=== PATIENT | male | born 1940 | race Caucasian/White ===

== ENCOUNTER 2019-02-24 17:14 | Inpatient (IN) | payer MEDICARE ==
[~2019-02-24] VITALS: Ht 172.7 cm; Wt 80.5 kg
--- NOTE | 2019-02-24 17:37 | NUR ---
Pt asssessed. Reports acute onset of diffuse abd cramping after working out at the gym this afternoon. Pt reports associated N/V. Pt denies fevers. Pt reports dirrhea for past week from taking an anti fingal medication which he has stopped. Denies CP or SOB. Did not eat anything new or different. NAD at this time. Pain worst with palpation. Will cont to monitor
[2019-02-24] MEDS ORDERED: CARV3.12 PO (17:49)
[2019-02-24] MEDS ORDERED: ATOR10TA9 PO (17:50)
[2019-02-24] MEDS ORDERED: SODIUM CHLORIDE FLUSH 10ML SYR IVF ONE (18:00)
[2019-02-24] MEDS ORDERED: LEVO125T PO (18:22)
[2019-02-24 18:27] LABS: BASOPHILS # (AUTO) 0.05 x10^3/uL (0-0.1); BASOPHILS % (AUTO) 0 % (0-1); EOSINOPHILS # (AUTO) 0.09 x10^3/uL (0-0.4); EOSINOPHILS % (AUTO) 1 % (1-7); LYMPHOCYTES # (AUTO) 1.49 x10^3/uL (1-3.4); LYMPHOCYTES % (AUTO) 12 % (22-44); MD NO; MEAN CORPUSCULAR HEMOGLOBIN 30.7 pg (27.5-34.5); MEAN CORPUSCULAR HGB CONC 32.9 g/dL (33.2-36.2); MEAN CORPUSCULAR VOLUME 93.3 fL (81-97); MEAN PLATELET VOLUME 8.4 fL (7.4-10.4); MONOCYTES # (AUTO) 0.68 x10^3/uL (0.2-0.8); MONOCYTES % (AUTO) 6 % (2-9); NEUTROPHILS # (AUTO) 10.15 x10^3/uL (1.8-6.8); NEUTROPHILS % (AUTO) 82 % (42-75); PLATELET COUNT 235 x10^3/uL (130-400); RED BLOOD COUNT 4.82 x10^6/uL (4.38-5.82); RED CELL DISTRIBUTION WIDTH 13.7 % (9.4-14.8)
[2019-02-24 18:39] LABS: ALANINE AMINOTRANSFERASE 29 U/L (12-78); ANION GAP 9 mmol/L (5-15); CALCIUM 8.8 mg/dL (8.5-10.1); CHLORIDE 109 mmol/L (98-107); CREATININE 1.09 mg/dL (0.7-1.3)
[2019-02-24 18:41] LABS: ALKALINE PHOSPHATASE 77 U/L (45-117); BILIRUBIN,TOTAL 1.1 mg/dL (0.2-1.0)
--- NOTE | 2019-02-24 18:57 | NUR ---
Report to Sandra VORA, turning over care at this time. Aware pt is requesting pain medication
--- NOTE | 2019-02-24 19:06 | NUR ---
pt to ct
[2019-02-24] MEDS ORDERED: ONDANSETRON 2MG/ML, 2ML ONE (19:10)
[2019-02-24] MEDS ORDERED: MORPHINE SULFATE 4 MG/ML, 1ML ONE (19:11)
[2019-02-24] MEDS ORDERED: MORPHINE SULFATE 4 MG/ML, 1ML IVPush PRN ×2 (19:30→20:00)
[2019-02-24] MEDS ORDERED: ONDANSETRON 2MG/ML, 2ML IVPush ONE (19:30)
--- NOTE | 2019-02-24 19:30 | NUR ---
PT RESTING CALMLY, MEDICATED PER MAR, MONITORS IN PLACE, SIDERAILS UP X2, CAA LIGHT WITHIN REACH
[2019-02-24] MEDS ORDERED: SODIUM CHLORIDE 0.9% 1,000 ML IV ONE ×2 (19:38→19:47)
[2019-02-24] MEDS ORDERED: SODIUM CHLORIDE FLUSH 10ML SYR IVF PRN (20:00)
[2019-02-24] MEDS ORDERED: ONDANSETRON 2MG/ML, 2ML IVPush PRN (20:00)
[2019-02-24] MEDS ORDERED: ACETAMINOPHEN 325 MG TABLET PO PRN (22:00)
[2019-02-24] MEDS ORDERED: PROMETHAZINE 25 MG/ML, 1ML IM PRN (22:00)
[2019-02-24] MEDS: LACTATED RINGERS 1,000 ML IV SCH (22:20)
[2019-02-24] MEDS: ENOXAPARIN 40 MG/0.4 ML SQ SCH (22:20)
[2019-02-24 22:41] VITALS: BP 192/77
[2019-02-24 23:48] LABS: CHOL/HDL RATIO 2.7; LDL/HDL RATIO 1.4 (0.5-3.0)
[2019-02-25 00:34] VITALS: BP 202/71
[2019-02-25] MEDS: morphine SULFATE 10 MG/ML, 1ML IVPush PRN ×3 (00:45→20:33)
[2019-02-25 05:01] LABS: BASOPHILS # (AUTO) 0.02 x10^3/uL (0-0.1); BASOPHILS % (AUTO) 0 % (0-1); EOSINOPHILS # (AUTO) 0.01 x10^3/uL (0-0.4); EOSINOPHILS % (AUTO) 0 % (1-7); LYMPHOCYTES # (AUTO) 1.11 x10^3/uL (1-3.4); LYMPHOCYTES % (AUTO) 9 % (22-44); MD NO; MEAN CORPUSCULAR HEMOGLOBIN 30.8 pg (27.5-34.5); MEAN CORPUSCULAR HGB CONC 32.6 g/dL (33.2-36.2); MEAN CORPUSCULAR VOLUME 94.3 fL (81-97); MEAN PLATELET VOLUME 8.4 fL (7.4-10.4); MONOCYTES # (AUTO) 0.94 x10^3/uL (0.2-0.8); MONOCYTES % (AUTO) 7 % (2-9); NEUTROPHILS # (AUTO) 11.02 x10^3/uL (1.8-6.8); NEUTROPHILS % (AUTO) 84 % (42-75); PLATELET COUNT 221 x10^3/uL (130-400); RED BLOOD COUNT 5.09 x10^6/uL (4.38-5.82); RED CELL DISTRIBUTION WIDTH 14.1 % (9.4-14.8)
[2019-02-25 05:11] LABS: CHLORIDE 110 mmol/L (98-107)
[2019-02-25 05:20] LABS: ALANINE AMINOTRANSFERASE 27 U/L (12-78); ALBUMIN 3.7 g/dL (3.4-5.0); ALKALINE PHOSPHATASE 78 U/L (45-117); ANION GAP 5 mmol/L (5-15); BILIRUBIN,TOTAL 1.3 mg/dL (0.2-1.0); CALCIUM 8.6 mg/dL (8.5-10.1); CREATININE 0.92 mg/dL (0.7-1.3); TOTAL PROTEIN 6.7 g/dL (6.4-8.2)
[2019-02-25] MEDS: LACTATED RINGERS 1,000 ML IV SCH ×3 (06:11→23:54)
[2019-02-25] MEDS: LEVOTHYROXINE 125 MCG TABLET PO SCH (06:11)
[2019-02-25 06:32] VITALS: BP 188/73
[2019-02-25 06:55] VITALS: BP 166/77
[2019-02-25] MEDS ORDERED: LORazepam 0.5MG TABLET PO PRN (11:00)
[2019-02-25] MEDS ORDERED: LORazepam 2 MG/ML, 1ML IV PRN ×5 (11:00)
[2019-02-25] MEDS ORDERED: LORazepam 1MG TABLET PO PRN ×2 (11:00)
[2019-02-25] MEDS: FOLIC ACID 1 MG TABLET PO SCH (11:40)
[2019-02-25] MEDS: THIAMINE 100MG TABLET PO SCH (11:40)
[2019-02-25] MEDS ORDERED: ATOR40TA PO (11:50)
[2019-02-25] MEDS ORDERED: ALFU10TA PO (11:57)
[2019-02-25 14:00] VITALS: BP 169/77
[2019-02-25 20:20] VITALS: BP 146/74
[2019-02-25] MEDS: CARVEDILOL 3.125 MG TABLET PO SCH (20:33)
[2019-02-25 21:15] VITALS: BP 135/76
[2019-02-25] MEDS: ENOXAPARIN 40 MG/0.4 ML SQ SCH (22:14)
[2019-02-26 00:02] VITALS: BP 137/77
[2019-02-26] MEDS: CARVEDILOL 3.125 MG TABLET PO SCH ×2 (05:05→18:42)
[2019-02-26] MEDS: LEVOTHYROXINE 125 MCG TABLET PO SCH (05:06)
[2019-02-26] MEDS: THIAMINE 100MG TABLET PO SCH (07:49)
[2019-02-26] MEDS: FOLIC ACID 1 MG TABLET PO SCH (07:49)
[2019-02-26] MEDS: morphine SULFATE 10 MG/ML, 1ML IVPush PRN (07:49)
[2019-02-26 07:56] VITALS: BP 123/73
[2019-02-26] MEDS: LACTATED RINGERS 1,000 ML IV SCH ×2 (08:30→16:30)
[2019-02-26 14:00] VITALS: BP 137/77
[2019-02-26] MEDS: ONDANSETRON 2MG/ML, 2ML IVPush PRN (19:23)
[2019-02-26 20:35] VITALS: BP 157/74
[2019-02-26] MEDS: ENOXAPARIN 40 MG/0.4 ML SQ SCH (21:01)
[2019-02-27 02:37] VITALS: BP 170/77
[2019-02-27 05:15] LABS: ALBUMIN 2.7 g/dL (3.4-5.0); ANION GAP 6 mmol/L (5-15); CALCIUM 7.6 mg/dL (8.5-10.1); CHLORIDE 108 mmol/L (98-107)
[2019-02-27 05:19] LABS: ALANINE AMINOTRANSFERASE 19 U/L (12-78); ALKALINE PHOSPHATASE 69 U/L (45-117); BILIRUBIN,TOTAL 2.3 mg/dL (0.2-1.0); CREATININE 0.79 mg/dL (0.7-1.3); TOTAL PROTEIN 5.5 g/dL (6.4-8.2)
[2019-02-27] MEDS: CARVEDILOL 3.125 MG TABLET PO SCH ×2 (05:34→18:07)
[2019-02-27] MEDS: LEVOTHYROXINE 125 MCG TABLET PO SCH (05:34)
[2019-02-27 05:53] LABS: MEAN CORPUSCULAR HEMOGLOBIN 30.9 pg (27.5-34.5); MEAN CORPUSCULAR HGB CONC 32.7 g/dL (33.2-36.2); MEAN CORPUSCULAR VOLUME 94.4 fL (81-97); MEAN PLATELET VOLUME 8.9 fL (7.4-10.4); PLATELET COUNT 172 x10^3/uL (130-400); RED BLOOD COUNT 4.69 x10^6/uL (4.38-5.82); RED CELL DISTRIBUTION WIDTH 14.2 % (9.4-14.8)
[2019-02-27 05:54] LABS: BASOPHILS # (AUTO) 0.01 x10^3/uL (0-0.1); BASOPHILS % (AUTO) 0 % (0-1); EOSINOPHILS % (AUTO) 0 % (1-7); LYMPHOCYTES # (AUTO) 1.04 x10^3/uL (1-3.4); LYMPHOCYTES % (AUTO) 6 % (22-44); MD SCAN; MONOCYTES # (AUTO) 1.14 x10^3/uL (0.2-0.8); MONOCYTES % (AUTO) 6 % (2-9); NEUTROPHILS % (AUTO) 88 % (42-75)
[2019-02-27] MEDS: morphine SULFATE 10 MG/ML, 1ML IVPush PRN (06:02)
[2019-02-27 06:14] VITALS: BP 156/72
[2019-02-27] MEDS: LACTATED RINGERS 1,000 ML IV SCH ×3 (09:08→19:35)
[2019-02-27] MEDS: FOLIC ACID 1 MG TABLET PO SCH (09:09)
[2019-02-27] MEDS: THIAMINE 100MG TABLET PO SCH (09:09)
[2019-02-27 14:00] VITALS: BP 156/84
[2019-02-27 19:08] VITALS: BP 171/73
[2019-02-27 19:40] VITALS: BP 191/80
[2019-02-27] MEDS: ONDANSETRON 2MG/ML, 2ML IVPush PRN (20:50)
[2019-02-27] MEDS: ENOXAPARIN 40 MG/0.4 ML SQ SCH (20:51)
[2019-02-27] MEDS: LABETALOL 5MG/ML, 20ML IVPush PRN (21:02)
[2019-02-27 23:27] VITALS: BP 175/75
[2019-02-28] VITALS (11 sets, daily range): BP systolic 142–184; BP diastolic 68–86
[2019-02-28] MEDS: ENALAPRILAT 1.25 MG/ML, 2ML IVPush PRN ×2 (00:17→00:48)
[2019-02-28 05:35] LABS: MEAN CORPUSCULAR VOLUME 93.9 fL (81-97); MEAN PLATELET VOLUME 8.9 fL (7.4-10.4); PLATELET COUNT 202 x10^3/uL (130-400); RED BLOOD COUNT 4.31 x10^6/uL (4.38-5.82); RED CELL DISTRIBUTION WIDTH 14.2 % (9.4-14.8)
[2019-02-28 05:40] LABS: CHLORIDE 109 mmol/L (98-107)
[2019-02-28 05:44] LABS: ALANINE AMINOTRANSFERASE 26 U/L (12-78); ALKALINE PHOSPHATASE 85 U/L (45-117); ANION GAP 6 mmol/L (5-15); BILIRUBIN,TOTAL 1.8 mg/dL (0.2-1.0); CALCIUM 7.8 mg/dL (8.5-10.1); CREATININE 0.71 mg/dL (0.7-1.3)
[2019-02-28 05:45] LABS: ALBUMIN 2.7 g/dL (3.4-5.0); TOTAL PROTEIN 5.4 g/dL (6.4-8.2)
[2019-02-28 06:20] LABS: BASOPHILS % (AUTO) 0 % (0-1); EOSINOPHILS # (AUTO) 0.02 x10^3/uL (0-0.4); EOSINOPHILS % (AUTO) 0 % (1-7); LYMPHOCYTES # (AUTO) 1.24 x10^3/uL (1-3.4); LYMPHOCYTES % (AUTO) 8 % (22-44); MD SCAN; MONOCYTES # (AUTO) 1.65 x10^3/uL (0.2-0.8); MONOCYTES % (AUTO) 10 % (2-9); NEUTROPHILS # (AUTO) 13.35 x10^3/uL (1.8-6.8); NEUTROPHILS % (AUTO) 82 % (42-75)
[2019-02-28] MEDS: CARVEDILOL 3.125 MG TABLET PO SCH ×2 (06:46→17:38)
[2019-02-28] MEDS: LEVOTHYROXINE 125 MCG TABLET PO SCH (06:46)
[2019-02-28] MEDS: THIAMINE 100MG TABLET PO SCH (09:47)
[2019-02-28] MEDS: FOLIC ACID 1 MG TABLET PO SCH (09:47)
[2019-02-28] MEDS: NEUTRA PHOS K 250 MG TABLET PO SCH ×3 (10:11→21:34)
[2019-02-28] MEDS ORDERED: TERB250T14 PO (16:36)
[2019-02-28] MEDS: ENOXAPARIN 40 MG/0.4 ML SQ SCH (21:35)
[2019-02-28] MEDS: ONDANSETRON 2MG/ML, 2ML IVPush PRN (21:35)
[2019-02-28] MEDS ORDERED: LACTATED RINGERS 1,000 ML IV SCH (22:00)
[2019-03-01] VITALS (7 sets, daily range): BP systolic 143–181; BP diastolic 65–80
[2019-03-01] MEDS: CARVEDILOL 3.125 MG TABLET PO SCH ×2 (05:38→17:53)
[2019-03-01] MEDS: LEVOTHYROXINE 125 MCG TABLET PO SCH (05:38)
[2019-03-01 05:58] LABS: MEAN CORPUSCULAR HEMOGLOBIN 31.2 pg (27.5-34.5); MEAN CORPUSCULAR HGB CONC 33.4 g/dL (33.2-36.2); MEAN CORPUSCULAR VOLUME 93.3 fL (81-97); MEAN PLATELET VOLUME 8.6 fL (7.4-10.4); PLATELET COUNT 211 x10^3/uL (130-400); RED BLOOD COUNT 4.03 x10^6/uL (4.38-5.82); RED CELL DISTRIBUTION WIDTH 14.3 % (9.4-14.8)
[2019-03-01 06:10] LABS: ALANINE AMINOTRANSFERASE 37 U/L (12-78); ALBUMIN 2.6 g/dL (3.4-5.0); ANION GAP 6 mmol/L (5-15); CALCIUM 7.6 mg/dL (8.5-10.1); CHLORIDE 108 mmol/L (98-107); CREATININE 0.65 mg/dL (0.7-1.3)
[2019-03-01 06:12] LABS: ALKALINE PHOSPHATASE 103 U/L (45-117); BILIRUBIN,TOTAL 1.7 mg/dL (0.2-1.0); TOTAL PROTEIN 5.3 g/dL (6.4-8.2)
[2019-03-01 06:28] LABS: MD YES
[2019-03-01 06:30] LABS: BAND#(MANUAL) 2.04 x10^3/uL; BANDS%(MANUAL) 13 % (0-7); LYMPH#(MANUAL) 1.41 x10^3/uL (1-3.4); LYMPHS% (MANUAL) 9 % (22-44); MONOS#(MANUAL) 1.26 x10^3/uL (0.3-2.7); MONOS% (MANUAL) 8 % (2-9); SEG#(MANUAL) 10.99 x10^3/uL (1.8-6.8); SEGS% (MANUAL) 70 % (42-75)
[2019-03-01 06:32] LABS: <PLATELET ESTIMATE> ADEQUATE; <PLT MORPHOLOGY> NORMAL PLT MORPH; <RBC MORPHOLOGY> NORMAL
[2019-03-01] MEDS ORDERED: POTASSIUM CHLORIDE 20 MEQ TAB.ER.PRT PO ONE ×2 (08:00→12:00)
[2019-03-01] MEDS: NEUTRA PHOS K 250 MG TABLET PO SCH ×3 (08:18→20:38)
[2019-03-01] MEDS: FOLIC ACID 1 MG TABLET PO SCH (08:19)
[2019-03-01] MEDS: THIAMINE 100MG TABLET PO SCH (08:19)
[2019-03-01] MEDS: D5%-0.45NACL+KCL 20MEQ 1,000 ML IV SCH ×2 (08:25→17:53)
[2019-03-01 09:14] LABS: FREE T4 (FREE THYROXINE) 1.53 ng/dL (0.76-1.46); THYROID STIMULATING HORMONE 1.26 mIU/L (0.358-3.740)
[2019-03-01] MEDS ORDERED: OMNIPAQUE 350 MG/ML, 100ML BOTTLE ONE (11:20)
[2019-03-01] MEDS: LABETALOL 5MG/ML, 20ML IVPush PRN ×2 (13:06→19:35)
[2019-03-01] MEDS: ENOXAPARIN 40 MG/0.4 ML SQ SCH (20:37)
[2019-03-01 21:28] LABS: CLOSTRIDIUM DIFFICILE ANTIGEN NEGATIVE; CLOSTRIDIUM DIFFICILE TOXIN NEGATIVE (Negative)
[2019-03-01] MEDS ORDERED: LOPERAMIDE 2 MG CAPSULE PO ONE (22:30)
[2019-03-02] MEDS: D5%-0.45NACL+KCL 20MEQ 1,000 ML IV SCH ×3 (01:15→17:24)
[2019-03-02 01:17] VITALS: BP 164/78
[2019-03-02] MEDS: morphine SULFATE 10 MG/ML, 1ML IVPush PRN (05:11)
[2019-03-02] MEDS: LEVOTHYROXINE 125 MCG TABLET PO SCH (05:12)
[2019-03-02] MEDS: CARVEDILOL 3.125 MG TABLET PO SCH ×2 (05:15→17:24)
[2019-03-02 07:35] VITALS: BP 195/97
[2019-03-02] MEDS: LABETALOL 5MG/ML, 20ML IVPush PRN (07:53)
[2019-03-02] MEDS: FOLIC ACID 1 MG TABLET PO SCH (09:23)
[2019-03-02] MEDS: NEUTRA PHOS K 250 MG TABLET PO SCH ×3 (09:23→21:30)
[2019-03-02] MEDS: THIAMINE 100MG TABLET PO SCH (09:23)
[2019-03-02 10:00] VITALS: BP 138/87
[2019-03-02 10:13] LABS: ALANINE AMINOTRANSFERASE 85 U/L (12-78); ALBUMIN 2.7 g/dL (3.4-5.0); ANION GAP 6 mmol/L (5-15); CHLORIDE 105 mmol/L (98-107); CREATININE 0.84 mg/dL (0.7-1.3)
[2019-03-02 10:16] LABS: ALKALINE PHOSPHATASE 181 U/L (45-117); BILIRUBIN,TOTAL 2.3 mg/dL (0.2-1.0); TOTAL PROTEIN 5.6 g/dL (6.4-8.2)
[2019-03-02 10:47] LABS: MEAN CORPUSCULAR HEMOGLOBIN 30.2 pg (27.5-34.5); MEAN CORPUSCULAR HGB CONC 32.3 g/dL (33.2-36.2); MEAN CORPUSCULAR VOLUME 93.4 fL (81-97); MEAN PLATELET VOLUME 8.6 fL (7.4-10.4); PLATELET COUNT 238 x10^3/uL (130-400); RED BLOOD COUNT 4.41 x10^6/uL (4.38-5.82); RED CELL DISTRIBUTION WIDTH 14.8 % (9.4-14.8)
[2019-03-02 11:41] LABS: MD YES
[2019-03-02 11:42] LABS: BAND#(MANUAL) 1.73 x10^3/uL; BANDS%(MANUAL) 11 % (0-7); LYMPH#(MANUAL) 0.47 x10^3/uL (1-3.4); LYMPHS% (MANUAL) 3 % (22-44); METAMYELOCYTES# (MANUAL) 0.16 x10^3/uL (0-0); METAMYELOCYTES% (MANUAL) 1 % (0-1); MONOS#(MANUAL) 2.51 x10^3/uL (0.3-2.7); MONOS% (MANUAL) 16 % (2-9); SEG#(MANUAL) 10.83 x10^3/uL (1.8-6.8); SEGS% (MANUAL) 69 % (42-75)
[2019-03-02 11:43] LABS: <PLATELET ESTIMATE> ADEQUATE; <PLT MORPHOLOGY> NORMAL PLT MORPH; <RBC MORPHOLOGY> NORMAL
[2019-03-02 12:04] VITALS: BP 145/66
[2019-03-02 19:48] VITALS: BP 145/72
[2019-03-02] MEDS: ENOXAPARIN 40 MG/0.4 ML SQ SCH (21:31)
[2019-03-03] MEDS: D5%-0.45NACL+KCL 20MEQ 1,000 ML IV SCH ×3 (00:49→19:59)
[2019-03-03 00:57] VITALS: BP 163/75
[2019-03-03] MEDS: LEVOTHYROXINE 125 MCG TABLET PO SCH (05:40)
[2019-03-03] MEDS: CARVEDILOL 3.125 MG TABLET PO SCH ×2 (05:41→18:33)
[2019-03-03 06:08] LABS: ALANINE AMINOTRANSFERASE 86 U/L (12-78); ALBUMIN 2.2 g/dL (3.4-5.0); ANION GAP 5 mmol/L (5-15); CALCIUM 7.5 mg/dL (8.5-10.1); CHLORIDE 109 mmol/L (98-107); CREATININE 0.63 mg/dL (0.7-1.3)
[2019-03-03 06:09] LABS: MEAN CORPUSCULAR HEMOGLOBIN 30.1 pg (27.5-34.5); MEAN CORPUSCULAR HGB CONC 32.4 g/dL (33.2-36.2); MEAN PLATELET VOLUME 8.7 fL (7.4-10.4); PLATELET COUNT 239 x10^3/uL (130-400); RED BLOOD COUNT 4.02 x10^6/uL (4.38-5.82); RED CELL DISTRIBUTION WIDTH 14.4 % (9.4-14.8)
[2019-03-03 06:10] LABS: ALKALINE PHOSPHATASE 180 U/L (45-117); BILIRUBIN,TOTAL 1.5 mg/dL (0.2-1.0); TOTAL PROTEIN 4.8 g/dL (6.4-8.2)
[2019-03-03 06:48] LABS: MD YES
[2019-03-03 06:49] LABS: BAND#(MANUAL) 0.76 x10^3/uL; BANDS%(MANUAL) 5 % (0-7); EOS#(MANUAL) 0.15 x10^3/uL (0.0-0.4); EOS% (MANUAL) 1 % (1-7); LYMPH#(MANUAL) 1.67 x10^3/uL (1-3.4); LYMPHS% (MANUAL) 11 % (22-44); MONOS#(MANUAL) 1.52 x10^3/uL (0.3-2.7); MONOS% (MANUAL) 10 % (2-9); SEGS% (MANUAL) 73 % (42-75)
[2019-03-03 06:50] LABS: <PLATELET ESTIMATE> ADEQUATE; <PLT MORPHOLOGY> NORMAL PLT MORPH; ANISOCYTOSIS 1+; OVALOCYTES 1+
[2019-03-03] MEDS ORDERED: D5%-0.45NACL+KCL 20MEQ 1,000 ML IV SCH (08:00)
[2019-03-03 08:03] VITALS: BP 169/71
[2019-03-03] MEDS: THIAMINE 100MG TABLET PO SCH (09:24)
[2019-03-03] MEDS: NEUTRA PHOS K 250 MG TABLET PO SCH ×3 (09:24→19:59)
[2019-03-03] MEDS: FOLIC ACID 1 MG TABLET PO SCH (09:24)
[2019-03-03 15:27] VITALS: BP 154/77
[2019-03-03 19:26] VITALS: BP 131/74
[2019-03-03] MEDS: ENOXAPARIN 40 MG/0.4 ML SQ SCH (19:59)
[2019-03-04 00:31] VITALS: BP 127/70
[2019-03-04] MEDS: D5%-0.45NACL+KCL 20MEQ 1,000 ML IV SCH ×3 (03:52→20:16)
[2019-03-04] MEDS: LEVOTHYROXINE 125 MCG TABLET PO SCH (05:32)
[2019-03-04] MEDS: CARVEDILOL 3.125 MG TABLET PO SCH ×2 (05:32→18:10)
[2019-03-04 06:04] LABS: MEAN CORPUSCULAR HEMOGLOBIN 29.8 pg (27.5-34.5); MEAN CORPUSCULAR HGB CONC 31.9 g/dL (33.2-36.2); MEAN CORPUSCULAR VOLUME 93.2 fL (81-97); MEAN PLATELET VOLUME 8.8 fL (7.4-10.4); PLATELET COUNT 259 x10^3/uL (130-400); RED BLOOD COUNT 4.06 x10^6/uL (4.38-5.82); RED CELL DISTRIBUTION WIDTH 14.6 % (9.4-14.8)
[2019-03-04 06:14] LABS: ALBUMIN 2.1 g/dL (3.4-5.0); ANION GAP 7 mmol/L (5-15); CALCIUM 7.4 mg/dL (8.5-10.1); CHLORIDE 108 mmol/L (98-107)
[2019-03-04 06:17] LABS: ALANINE AMINOTRANSFERASE 126 U/L (12-78); ALKALINE PHOSPHATASE 224 U/L (45-117); BILIRUBIN,TOTAL 1.4 mg/dL (0.2-1.0); TOTAL PROTEIN 4.7 g/dL (6.4-8.2)
[2019-03-04 06:22] LABS: MD YES
[2019-03-04 06:24] LABS: BAND#(MANUAL) 0.88 x10^3/uL; BANDS%(MANUAL) 5 % (0-7); EOS#(MANUAL) 0.18 x10^3/uL (0.0-0.4); EOS% (MANUAL) 1 % (1-7); LYMPH#(MANUAL) 0.53 x10^3/uL (1-3.4); LYMPHS% (MANUAL) 3 % (22-44); METAMYELOCYTES# (MANUAL) 0.35 x10^3/uL (0-0); METAMYELOCYTES% (MANUAL) 2 % (0-1); MONOS#(MANUAL) 1.93 x10^3/uL (0.3-2.7); MONOS% (MANUAL) 11 % (2-9); MYELOCYTES# (MANUAL) 0.18 x10^3/uL (0-0); MYELOCYTES% (MANUAL) 1 % (0-0); SEG#(MANUAL) 13.48 x10^3/uL (1.8-6.8); SEGS% (MANUAL) 77 % (42-75)
[2019-03-04 06:25] LABS: <PLATELET ESTIMATE> ADEQUATE; <PLT MORPHOLOGY> NORMAL PLT MORPH; OVALOCYTES 1+
[2019-03-04 08:15] VITALS: BP 151/61
[2019-03-04] MEDS: NEUTRA PHOS K 250 MG TABLET PO SCH ×3 (09:23→20:16)
[2019-03-04] MEDS: THIAMINE 100MG TABLET PO SCH (09:24)
[2019-03-04] MEDS: FOLIC ACID 1 MG TABLET PO SCH (09:24)
[2019-03-04 14:00] VITALS: BP 186/76
[2019-03-04] MEDS ORDERED: LABETALOL 5MG/ML, 20ML IVPush PRN ×2 (15:00→17:30)
[2019-03-04] MEDS: AMLODIPINE 2.5 MG TABLET PO SCH (15:09)
[2019-03-04 16:26] VITALS: BP 185/76
[2019-03-04] MEDS ORDERED: LABETALOL 5 MG/ML SYRINGE IVPush PRN (17:30)
[2019-03-04] MEDS: ENOXAPARIN 40 MG/0.4 ML SQ SCH (20:17)
[2019-03-04 20:20] VITALS: BP 152/70
[2019-03-05] VITALS (7 sets, daily range): BP systolic 126–181; BP diastolic 70–88
[2019-03-05] MEDS: D5%-0.45NACL+KCL 20MEQ 1,000 ML IV SCH ×3 (03:24→19:45)
[2019-03-05 03:57] LABS: MEAN CORPUSCULAR HEMOGLOBIN 30.6 pg (27.5-34.5); MEAN CORPUSCULAR HGB CONC 32.5 g/dL (33.2-36.2); MEAN CORPUSCULAR VOLUME 94.1 fL (81-97); MEAN PLATELET VOLUME 8.8 fL (7.4-10.4); PLATELET COUNT 305 x10^3/uL (130-400); RED BLOOD COUNT 3.98 x10^6/uL (4.38-5.82); RED CELL DISTRIBUTION WIDTH 14.6 % (9.4-14.8)
[2019-03-05 04:09] LABS: ALBUMIN 2.1 g/dL (3.4-5.0); ANION GAP 6 mmol/L (5-15); CALCIUM 7.3 mg/dL (8.5-10.1); CHLORIDE 109 mmol/L (98-107)
[2019-03-05 04:13] LABS: ALANINE AMINOTRANSFERASE 131 U/L (12-78); ALKALINE PHOSPHATASE 243 U/L (45-117); BILIRUBIN,TOTAL 1.3 mg/dL (0.2-1.0); CREATININE 0.61 mg/dL (0.7-1.3); TOTAL PROTEIN 4.8 g/dL (6.4-8.2)
[2019-03-05] MEDS: LEVOTHYROXINE 125 MCG TABLET PO SCH (05:37)
[2019-03-05] MEDS: CARVEDILOL 3.125 MG TABLET PO SCH ×2 (05:37→17:09)
[2019-03-05 05:42] LABS: MD YES
[2019-03-05 05:43] LABS: BAND#(MANUAL) 0.41 x10^3/uL; BANDS%(MANUAL) 2 % (0-7); EOS#(MANUAL) 0.41 x10^3/uL (0.0-0.4); EOS% (MANUAL) 2 % (1-7); LYMPH#(MANUAL) 1.42 x10^3/uL (1-3.4); LYMPHS% (MANUAL) 7 % (22-44); METAMYELOCYTES% (MANUAL) 1 % (0-1); MONOS#(MANUAL) 1.02 x10^3/uL (0.3-2.7); MONOS% (MANUAL) 5 % (2-9); SEG#(MANUAL) 16.85 x10^3/uL (1.8-6.8); SEGS% (MANUAL) 83 % (42-75)
[2019-03-05 05:44] LABS: ANISOCYTOSIS 1+
[2019-03-05 05:45] LABS: <PLATELET ESTIMATE> ADEQUATE; <PLT MORPHOLOGY> NORMAL PLT MORPH; OVALOCYTES 1+
[2019-03-05] MEDS: AMLODIPINE 2.5 MG TABLET PO SCH (10:25)
[2019-03-05] MEDS: FOLIC ACID 1 MG TABLET PO SCH (10:25)
[2019-03-05] MEDS: NEUTRA PHOS K 250 MG TABLET PO SCH ×3 (10:25→19:45)
[2019-03-05] MEDS: THIAMINE 100MG TABLET PO SCH (10:25)
[2019-03-05] MEDS: ENOXAPARIN 40 MG/0.4 ML SQ SCH (19:45)
[2019-03-06 00:20] VITALS: BP 170/71
[2019-03-06] MEDS: D5%-0.45NACL+KCL 20MEQ 1,000 ML IV SCH ×3 (03:26→20:22)
[2019-03-06 05:04] VITALS: BP 160/65
[2019-03-06] MEDS: CARVEDILOL 3.125 MG TABLET PO SCH ×2 (05:05→17:15)
[2019-03-06] MEDS: LEVOTHYROXINE 125 MCG TABLET PO SCH (05:06)
[2019-03-06 05:13] LABS: MEAN CORPUSCULAR HEMOGLOBIN 30.7 pg (27.5-34.5); MEAN CORPUSCULAR HGB CONC 32.8 g/dL (33.2-36.2); MEAN CORPUSCULAR VOLUME 93.7 fL (81-97); MEAN PLATELET VOLUME 8.9 fL (7.4-10.4); PLATELET COUNT 326 x10^3/uL (130-400); RED BLOOD COUNT 3.92 x10^6/uL (4.38-5.82); RED CELL DISTRIBUTION WIDTH 14.8 % (9.4-14.8)
[2019-03-06 05:22] LABS: CHLORIDE 109 mmol/L (98-107)
[2019-03-06 05:28] LABS: ALANINE AMINOTRANSFERASE 137 U/L (12-78); ALBUMIN 2.1 g/dL (3.4-5.0); ALKALINE PHOSPHATASE 243 U/L (45-117); ANION GAP 7 mmol/L (5-15); BILIRUBIN,TOTAL 1.2 mg/dL (0.2-1.0); CALCIUM 7.3 mg/dL (8.5-10.1); CREATININE 0.59 mg/dL (0.7-1.3); TOTAL PROTEIN 4.8 g/dL (6.4-8.2)
[2019-03-06 05:53] LABS: BAND#(MANUAL) 0.43 x10^3/uL; BANDS%(MANUAL) 2 % (0-7); EOS#(MANUAL) 0.22 x10^3/uL (0.0-0.4); EOS% (MANUAL) 1 % (1-7); LYMPH#(MANUAL) 1.51 x10^3/uL (1-3.4); LYMPHS% (MANUAL) 7 % (22-44); MD YES; METAMYELOCYTES# (MANUAL) 0.43 x10^3/uL (0-0); METAMYELOCYTES% (MANUAL) 2 % (0-1); MONOS#(MANUAL) 1.51 x10^3/uL (0.3-2.7); MONOS% (MANUAL) 7 % (2-9); SEGS% (MANUAL) 81 % (42-75)
[2019-03-06 05:54] LABS: ANISOCYTOSIS 1+; OVALOCYTES 1+
[2019-03-06 05:55] LABS: <PLATELET ESTIMATE> ADEQUATE; <PLT MORPHOLOGY> NORMAL PLT MORPH
[2019-03-06 07:45] VITALS: BP 151/76
[2019-03-06] MEDS ORDERED: POTASSIUM CHLORIDE 20 MEQ TAB.ER.PRT PO ONE ×2 (08:00→11:00)
[2019-03-06] MEDS: THIAMINE 100MG TABLET PO SCH (10:40)
[2019-03-06] MEDS: AMLODIPINE 2.5 MG TABLET PO SCH (10:40)
[2019-03-06] MEDS: NEUTRA PHOS K 250 MG TABLET PO SCH ×3 (10:40→20:22)
[2019-03-06] MEDS: FOLIC ACID 1 MG TABLET PO SCH (10:41)
[2019-03-06 17:16] VITALS: BP 170/78
[2019-03-06] MEDS: ENOXAPARIN 40 MG/0.4 ML SQ SCH (20:22)
[2019-03-06 20:25] VITALS: BP 150/53
[2019-03-07 01:15] VITALS: BP 172/77
[2019-03-07] MEDS: D5%-0.45NACL+KCL 20MEQ 1,000 ML IV SCH ×3 (04:52→21:59)
[2019-03-07] MEDS: CARVEDILOL 3.125 MG TABLET PO SCH ×2 (05:43→17:05)
[2019-03-07] MEDS: LEVOTHYROXINE 125 MCG TABLET PO SCH (05:43)
[2019-03-07 06:59] VITALS: BP 165/72
[2019-03-07 07:00] LABS: MEAN CORPUSCULAR HEMOGLOBIN 30.6 pg (27.5-34.5); MEAN CORPUSCULAR HGB CONC 32.8 g/dL (33.2-36.2); MEAN CORPUSCULAR VOLUME 93.4 fL (81-97); MEAN PLATELET VOLUME 8.8 fL (7.4-10.4); PLATELET COUNT 362 x10^3/uL (130-400); RED CELL DISTRIBUTION WIDTH 14.6 % (9.4-14.8)
[2019-03-07 07:11] LABS: ALANINE AMINOTRANSFERASE 137 U/L (12-78); ALBUMIN 2.1 g/dL (3.4-5.0); ANION GAP 7 mmol/L (5-15); CALCIUM 7.8 mg/dL (8.5-10.1); CHLORIDE 110 mmol/L (98-107); CREATININE 0.63 mg/dL (0.7-1.3)
[2019-03-07 07:13] LABS: ALKALINE PHOSPHATASE 255 U/L (45-117); BILIRUBIN,TOTAL 1.1 mg/dL (0.2-1.0); TOTAL PROTEIN 5.2 g/dL (6.4-8.2)
[2019-03-07 07:39] LABS: MD YES
[2019-03-07 07:42] LABS: BAND#(MANUAL) 0.64 x10^3/uL; BANDS%(MANUAL) 3 % (0-7); EOS#(MANUAL) 0.21 x10^3/uL (0.0-0.4); EOS% (MANUAL) 1 % (1-7); LYMPH#(MANUAL) 1.48 x10^3/uL (1-3.4); LYMPHS% (MANUAL) 7 % (22-44); MONOS#(MANUAL) 0.85 x10^3/uL (0.3-2.7); MONOS% (MANUAL) 4 % (2-9); MYELOCYTES# (MANUAL) 0.21 x10^3/uL (0-0); MYELOCYTES% (MANUAL) 1 % (0-0); SEG#(MANUAL) 17.81 x10^3/uL (1.8-6.8); SEGS% (MANUAL) 84 % (42-75)
[2019-03-07 07:43] LABS: <PLATELET ESTIMATE> ADEQUATE; <PLT MORPHOLOGY> NORMAL PLT MORPH; ANISOCYTOSIS 1+; OVALOCYTES 1+
[2019-03-07] MEDS: NEUTRA PHOS K 250 MG TABLET PO SCH ×3 (10:00→21:59)
[2019-03-07] MEDS: FOLIC ACID 1 MG TABLET PO SCH (10:00)
[2019-03-07] MEDS: AMLODIPINE 2.5 MG TABLET PO SCH (10:00)
[2019-03-07] MEDS: THIAMINE 100MG TABLET PO SCH (10:00)
[2019-03-07 14:28] VITALS: BP 117/67
[2019-03-07 19:52] VITALS: BP 131/86
[2019-03-07] MEDS: ENOXAPARIN 40 MG/0.4 ML SQ SCH (21:59)
[2019-03-08 01:02] VITALS: BP 123/72
[2019-03-08 05:40] LABS: MEAN CORPUSCULAR HEMOGLOBIN 30.5 pg (27.5-34.5); MEAN CORPUSCULAR HGB CONC 32.8 g/dL (33.2-36.2); MEAN PLATELET VOLUME 8.6 fL (7.4-10.4); PLATELET COUNT 384 x10^3/uL (130-400); RED BLOOD COUNT 4.01 x10^6/uL (4.38-5.82); RED CELL DISTRIBUTION WIDTH 14.6 % (9.4-14.8)
[2019-03-08 05:55] LABS: ALBUMIN 2.1 g/dL (3.4-5.0); ANION GAP 8 mmol/L (5-15); CALCIUM 7.6 mg/dL (8.5-10.1); CHLORIDE 111 mmol/L (98-107)
[2019-03-08 06:00] LABS: ALANINE AMINOTRANSFERASE 134 U/L (12-78); ALKALINE PHOSPHATASE 255 U/L (45-117); CREATININE 0.67 mg/dL (0.7-1.3); TOTAL PROTEIN 5.2 g/dL (6.4-8.2)
[2019-03-08] MEDS: CARVEDILOL 3.125 MG TABLET PO SCH (06:00)
[2019-03-08] MEDS: LEVOTHYROXINE 125 MCG TABLET PO SCH (06:01)
[2019-03-08] MEDS: D5%-0.45NACL+KCL 20MEQ 1,000 ML IV SCH (06:01)
[2019-03-08 06:15] LABS: MD YES
[2019-03-08 06:18] LABS: BAND#(MANUAL) 0.37 x10^3/uL; BANDS%(MANUAL) 2 % (0-7); EOS#(MANUAL) 0.18 x10^3/uL (0.0-0.4); EOS% (MANUAL) 1 % (1-7); LYMPHS% (MANUAL) 6 % (22-44); METAMYELOCYTES# (MANUAL) 0.18 x10^3/uL (0-0); METAMYELOCYTES% (MANUAL) 1 % (0-1); MONOS% (MANUAL) 6 % (2-9); SEG#(MANUAL) 15.37 x10^3/uL (1.8-6.8); SEGS% (MANUAL) 84 % (42-75)
[2019-03-08 06:19] LABS: ANISOCYTOSIS 1+; OVALOCYTES 1+
[2019-03-08 06:20] LABS: <PLATELET ESTIMATE> ADEQUATE; <PLT MORPHOLOGY> NORMAL PLT MORPH
[2019-03-08 06:21] LABS: ECHINOCYTES 1+
[2019-03-08 08:00] VITALS: BP 148/74
[2019-03-08] MEDS: NEUTRA PHOS K 250 MG TABLET PO SCH (08:49)
[2019-03-08] MEDS: THIAMINE 100MG TABLET PO SCH (08:49)
[2019-03-08] MEDS: FOLIC ACID 1 MG TABLET PO SCH (08:49)
[2019-03-08] MEDS: AMLODIPINE 2.5 MG TABLET PO SCH (08:49)
[2019-03-08] MEDS ORDERED: PANCRELIPASE 24,000 CAPSULE.DR PO PRN (10:30)
[2019-03-08] MEDS ORDERED: THIA100T67 PO (11:03)
[2019-03-08] MEDS ORDERED: LIPA1CAP61 PO ×2 (11:03)
[2019-03-08] MEDS ORDERED: AMLO2.5T5 PO (11:03)
[2019-03-08] MEDS ORDERED: PANCRELIPASE 24,000 CAPSULE.DR PO SCH (12:00)
== END 2019-03-08 12:35 | disposition home or self-care (01) | DRG 871 ==
LOC: ED 18:03 → EDIP 19:47 → 3NE 20:36 → DCLOUNGE 03-08 12:24
PROVIDERS: ADMIT Family Medicine; ATTEND Family Medicine
DX: A41.9 Sepsis, unspecified organism (principal); K85.21 Alcohol induced acute pancreatitis with uninfected necrosis; K86.1 Other chronic pancreatitis; F10.129 Alcohol abuse with intoxication, unspecified; I10 Essential (primary) hypertension; D72.825 Bandemia; E03.9 Hypothyroidism, unspecified; E78.5 Hyperlipidemia, unspecified; F41.9 Anxiety disorder, unspecified; N36.8 Other specified disorders of urethra; N40.1 Benign prostatic hyperplasia with lower urinary tract symptoms; R19.7 Diarrhea, unspecified; R33.8 Other retention of urine; Z80.1 Family history of malignant neoplasm of trachea, bronchus and lung
CPT/HCPCS: 36415; 74177; 74181; 76705; 80053; 80061; 82787; 83605; 83615; 83690; 83735; 84100; 84145; 84439; 84443; 85025; 87040; 87324; 89055; 96374; 96375; G0378; J1650; J2405; Q9967; J2270; J3480; J7030; J7120

== ENCOUNTER 2019-04-14 10:16 | Outpatient (CLI) | payer MEDICARE ==
[~2019-04-14 10:16] MED LIST: ALFU10TA PO; AMLO2.5T5 PO; ATOR10TA9 PO; ATOR40TA PO; CARV3.12 PO; LEVO125T PO; LIPA1CAP61 PO; TERB250T14 PO; THIA100T67 PO
[2019-04-14] MEDS ORDERED: ATOR20TA37 PO (11:36)
[2019-04-14] MEDS ORDERED: LEVO112T2 PO (11:36)
== END 2019-04-14 23:59 | disposition home or self-care (01) ==
LOC: STAR 10:16
PROVIDERS: ATTEND Internal Medicine Geriatric Medicine
DX: Z01.818 Encounter for other preprocedural examination (principal); K86.1 Other chronic pancreatitis; I44.4 Left anterior fascicular block; R94.31 Abnormal electrocardiogram [ECG] [EKG]
CPT/HCPCS: 93005

== ENCOUNTER 2019-04-19 08:06 | Day surgery (SDC) | payer MEDICARE ==
[~2019-04-19] VITALS: Ht 172.7 cm; Wt 68.2 kg
[2019-04-19 08:34] VITALS: BP 107/69
== END 2019-04-19 13:20 | disposition home or self-care (01) ==
LOC: OUT 08:06
PROVIDERS: ATTEND Internal Medicine Geriatric Medicine
DX: K85.90 Acute pancreatitis without necrosis or infection, unspecified (principal); K86.1 Other chronic pancreatitis; K86.89 Other specified diseases of pancreas; E03.9 Hypothyroidism, unspecified
CPT/HCPCS: 43242; 88172; 88173; 88177; 88307; J2704; J7120